=== PATIENT | female | born 1960 | race Caucasian/White ===

== ENCOUNTER → 2017-05-22 | Outpatient (REF) | payer OTHER ==
[2017-05-22 16:55] LABS: BASO % 0.9 % (0.0-1.0); EOS # 0.1 K/mm3 (0.0-0.50); EOS % 2.4 % (0.0-3.0); LARGE UNSTAINED CELL # 0.2 K/mm3 (0.0-0.4); LARGE UNSTAINED CELL % 2.9 % (0.0-4.0); LYMPH # 1.8 K/mm3 (1.5-4.5); LYMPH % 32.7 % (24.0-44.0); MEAN CORPUSCULAR HEMOGLOBIN 32.2 pg (27.0-33.0); MEAN CORPUSCULAR HGB CONC 33.4 g/dl (32.0-36.5); MEAN CORPUSCULAR VOLUME 96.1 fl (80.0-96.0); MONO # 0.3 K/mm3 (0.0-0.8); MONO % 6.5 % (0.0-5.0); NEUTROPHILS # 2.8 K/mm3 (1.8-7.7); NEUTROPHILS % 54.6 % (36.0-66.0); PLATELET COUNT, AUTOMATED 243 k/mm3 (150-450); RED CELL DISTRIBUTION WIDTH 12.2 % (11.5-14.5); WHITE BLOOD COUNT 5.1 K/mm3 (4.0-10.0)
[2017-05-22 17:10] LABS: ALBUMIN/GLOBULIN RATIO 1.33 (1.00-1.93); ALKALINE PHOSPHATASE 75 U/L (45-117); ALT/SGPT 37 U/L (12-78); ANION GAP 3 MEQ/L (8-16); AST/SGOT 25 U/L (15-37); BILIRUBIN,TOTAL 0.4 MG/DL (0.2-1.0); BLOOD UREA NITROGEN 16 MG/DL (7-18); CALCIUM LEVEL 8.9 MG/DL (8.5-10.1); CARBON DIOXIDE LEVEL 29 MEQ/L (21-32); CHLORIDE LEVEL 105 MEQ/L (98-107); CREATININE FOR GFR 0.96 MG/DL (0.55-1.02); GLOMERULAR FILTRATION RATE > 60.0 (>51); GLUCOSE, FASTING 87 MG/DL (70-105); POTASSIUM SERUM 4.4 MEQ/L (3.5-5.1); SODIUM LEVEL 137 MEQ/L (136-145)
== END ==
LOC: M SFHCPLAZ 16:06
PROVIDERS: ATTEND Dermatology
DX: Z51.81 Encounter for therapeutic drug level monitoring (principal)

== ENCOUNTER → 2020-10-29 | Outpatient (CLI) | payer OTHER ==
--- NOTE | 2020-10-29 15:05 | REP ---
INDICATION: COUGH. COMPARISON: None. TECHNIQUE: PA and lateral views FINDINGS: The superior mediastinal structures are midline. The cardiac silhouette is unremarkable in size, shape, and position. The diaphragmatic surfaces of the lungs are regular, and the costophrenic angles are clear. The pulmonary [place] are clear. The imaged osseous structures are intact. IMPRESSION: There is no acute cardiopulmonary disease. <Electronically signed by Ronni Ovalles > 10/29/20 [id number]
[2020-10-29 17:24] LABS: ALBUMIN 4.1 GM/DL (3.2-5.2); ALT/SGPT 40 U/L (12-78); BILIRUBIN,DIRECT < 0.1 MG/DL (0.0-0.2); BILIRUBIN,TOTAL 0.4 MG/DL (0.2-1.0); TOTAL PROTEIN 7.1 GM/DL (6.4-8.2)
== END ==
LOC: M WUC 14:32
PROVIDERS: ATTEND Internal Medicine Gastroenterology
DX: R94.5 Abnormal results of liver function studies (principal); E88.01 Alpha-1-antitrypsin deficiency; R19.7 Diarrhea, unspecified; K51.20 Ulcerative (chronic) proctitis without complications; R05 Cough

== ENCOUNTER → 2021-02-28 | Outpatient (REF) | payer OTHER | LOC: M SMT 17:38 | PROVIDERS: ATTEND Urology | DX: R31.29 Other microscopic hematuria (principal) ==

== ENCOUNTER → 2022-01-17 | Outpatient (REF) | payer OTHER | LOC: M LAB REF 16:54 | PROVIDERS: ATTEND Otolaryngology | DX: B37.0 Candidal stomatitis (principal) ==

== ENCOUNTER → 2022-01-23 | Outpatient (CLI) | payer OTHER ==
[~2022-01-23] MED LIST: METHACHOLINE KIT (J7674) INH ONE
== END ==
LOC: M CARPUL 08:08
PROVIDERS: ATTEND Nurse Practitioner Family
DX: R06.02 Shortness of breath (principal)

== ENCOUNTER → 2022-05-16 | Outpatient (CLI) | payer OTHER ==
[2022-05-16 16:14] LABS: FOLATE 6.5 NG/ML; PERCENT SATURATION 26.3 % (13.2-45.0)
== END ==
LOC: M PLALAB 10:05
PROVIDERS: ATTEND Internal Medicine Infectious Disease
DX: K14.0 Glossitis (principal)